=== PATIENT | male | born 1990 | race Caucasian/White ===

== ENCOUNTER 2022-08-11 11:34 | Emergency (ER) | payer BC, SELFPAY ==
--- NOTE | ~2022-08-11 | US_ITS ---
Testicular ultrasound with doppler. Indication: Pain. Technique: Real-time sonography the scrotum was performed. Color flow Doppler and Doppler spectral an alysis were performed. Findings: The testes are homogeneous in echotexture bilaterally. There is no evidence of an intrates ticular mass. The right testis measures 4.7 x 2.4 x 2.9 cm and the left 4.9 x 2.5 x 3.2 cm. There is color-flow seen to both testes. Arterial and venous spectral waveforms are seen in both testes. There is no sonographic evidence of torsion. The head of the epididymis is visualized bilaterally and is within normal limits. Impression: Unremarkable exam. No evidence of torsion. Reviewed, dictated and finalized at location . Impression: Unremarkable exam. No evidence of torsion.
[2022-08-11 11:46] VITALS: BP 136/74; PULSE 93; RESP 16; TEMP 36.4; O2SAT 98
[2022-08-11 13:02] LABS: Appearance Urine Clear (Clear); Bilirubin Urine Negative (Negative); Blood Urine Negative (Negative); Color Urine Yellow (Yellow); Glucose Urine UA Negative (Negative); Ketones Urine Negative (Negative); Leukocyte Esterase Ur Negative LEU/UL (Negative); Nitrate Urine Negative (Negative); Protein Urine Negative (Negative); Specific Grav Ur 1.009 (1.001-1.035)
[2022-08-11 13:37] LABS: Add Urine Microscopic? NO
--- NOTE | 2022-08-11 13:38 | ED.MALEGU ---
HPI - Male Genitourinary General Chief complaint: Urogenital-Male Stated complaint: left testicle pain X5 weeks ago Time Seen by Provider: 08/11/22 12:12 Source: patient Mode of arrival: ambulatory Limitations: no limitations History of Present Illness HPI Narrative: 31-year-old with a history of hypertension here with complaints of testicular pain for last 6 weeks. Patient states while he was trying to carry grocery bags yesterday had a severe pain in the testicle he also states that his noticed a small lump in the testicle. However which is now not obvious. He denies any trauma. He denies any fever or chills no blood in the urine. Onset (ago): week(s) (3) Duration: intermittent Location: left testicle Severity: moderate Quality: aching Relieving factors: none Exacerbating factors: none Associated symptoms: Reports denies other symptoms Related Data Sexually active: Yes Allergies Allergy/AdvReac Type Severity Reaction Status Date / Time No Known Allergies Allergy Verified 08/11/22 11:51 Review of Systems Review of Systems: All systems reviewed & are unremarkable except as noted in HPI and below Constitutional: Constitutional: Reports no additional constitutional complaints Eyes: Eyes: Reports no additional eye complaints ENT: Reports system reviewed and no additional complaints, except as documented Cardiovascular: Cardiovascular: Reports no additional cardiovascular complaints Respiratory: Respiratory: Reports no additional respiratory complaints Gastrointestinal: Gastrointestinal: Reports no additional gastrointestinal complaints Genitourinary: Genitourinary: Reports as per HPI Musculoskeletal: Musculoskeletal: Reports no additional musculoskeletal complaints Integumentary/Breasts: Skin/Breast: Reports system reviewed and no additional complaints, except as docu Exam Narrative: GENERAL: Well-appearing, well-nourished, and in no acute distress. HEAD: Normocephalic, atraumatic. EYES: PERRLA and EOMI NECK: Supple. CHEST: Clear to auscultation. No respiratory distress. HEART: Regular rate and rhythm. No murmur heard. Normal peripheral pulses. ABDOMEN: Soft, nontender, nondistended, normal active bowel sounds. both testes descended circumcised male nontender no evidence of infection scrotal wall normal EXTREMITIES: Normal range of motion. No edema. SKIN: Warm, dry, no rash. NEURO: No focal deficits. Alert and oriented x3. PSYCH: Normal mood and affect. Course Course Emergency Course: Patient had an ultrasound which was unremarkable informed him about the lab and ultrasound results. Cause of his pain is unknown at this time recommended him to follow-up with urology Vital Signs Vital signs: Vital Signs Temperature 36.4 C L 08/11/22 11:46 Pulse Rate 93 08/11/22 11:46 Respiratory Rate 16 08/11/22 11:46 Blood Pressure 136/74 08/11/22 11:46 Pulse Oximetry 98 08/11/22 11:46 Temperature 36.4 C L 08/11/22 11:46 Pulse Rate 93 08/11/22 11:46 Respiratory Rate 16 08/11/22 11:46 Blood Pressure 136/74 08/11/22 11:46 Pulse Oximetry 98 08/11/22 11:46 MDM - Male Genitourinary Lab Data Labs: Lab Results 08/11/22 Range/Units 12:30 Urine Color Yellow (Yellow) Urine Appearance Clear (Clear) Urine pH 7.0 (5.0-9.0) Ur Specific [place] 1.009 (1.001-1.035) Urine Protein Negative (Negative) mg/dL Urine Glucose (UA) Negative (Negative) mg/dL Urine Ketones Negative (Negative) mg/dL Ur Blood (Man) Negative (Negative) Urine Nitrate Negative (Negative) Urine Bilirubin Negative (Negative) Urine Urobilinogen 1.0 (<2.0) mg/dL Leukocyte Esterase Rfl Negative (Negative) DANIELA/UL Imaging Data Radiologist's impression: ITS Impressions Scrotum Ultrasound 08/11/22 13:10 Impression: Unremarkable exam. No evidence of torsion. Discharge Plan Discharge Clinical Impression: Pain in testicle P
== END 2022-08-11 14:18 | disposition home or self-care (01) ==
PROVIDERS: Emergency Medicine; Emergency Provider Family Medicine; PCP Hospitalist
DX: N50.812 Left testicular pain (principal)
CPT/HCPCS: 76870; 81003; 93976; 99284